=== PATIENT | male | born 1935 | race Caucasian/White ===

== ENCOUNTER 2021-12-24 08:12 | Day surgery (SDC) | payer MEDICARE, BC ==
[2021-12-21 09:54] LABS: BASOPHILS # (AUTO) 0.1 X10'3 (0-0.2); BASOPHILS % (AUTO) 0.8 % (0-1); EOSINOPHILS # (AUTO) 0.3 X10'3 (0-0.9); LYMPHOCYTES # (AUTO) 1.7 X10'3 (1.1-4.8); LYMPHOCYTES % (AUTO) 22.2 % (21-51); MEAN CORPUSCULAR HEMOGLOBIN 32.6 PG (27.0-31.0); MEAN CORPUSCULAR HGB CONC 34.3 g/dL (33.0-36.5); MEAN CORPUSCULAR VOLUME 95.2 FL (78-98); MEAN PLATELET VOLUME 8.6 FL (7.4-10.4); MONOCYTES # (AUTO) 0.8 X10'3 (0-0.9); MONOCYTES % (AUTO) 10.2 % (2-12); NEUTROPHILS # (AUTO) 4.9 X10'3 (1.8-7.7); NEUTROPHILS % (AUTO) 62.8 % (42-75); PRE OP HEMATOCRIT 42.3 % (42.0-52.0); PRE OP HEMOGLOBIN 14.5 g/dL (14.0-17.9); PRE OP PLATELET COUNT 198 X10'3 (140-440); RED BLOOD COUNT 4.44 X10'6 (4.70-6.10); RED CELL DISTRIBUTION WIDTH 12.8 % (11.5-14.5)
[2021-12-21 12:45] LABS: ALBUMIN 4.1 G/DL (3.4-5.0); ALBUMIN/GLOBULIN RATIO 1.1 (1.1-1.5); ALKALINE PHOSPHATASE 90 IU/L (46-116); BLOOD UREA NITROGEN 11 MG/DL (7-18); BUN/CREATININE RATIO 10.6 (5.4-32.0); CALCIUM 9.2 MG/DL (8.5-10.1); CHLORIDE 107 MMOL/L (99-107); CREATININE 1.04 MG/DL (0.60-1.10); PRE OP ALT 23 U/L (30-65); PRE OP ANION GAP 6 (8-16); PRE OP AST 20 U/L (10-37); PRE OP BILIRUB, TOTAL 0.6 MG/DL (0.0-1.0); PRE OP GLUCOSE 91 MG/DL (70-104); PRE OP POTASSIUM 4.2 MMOL/L (3.4-5.1); PRE OP SODIUM 140 MMOL/L (135-145); TOTAL CARBON DIOXIDE 26.7 MMOL/L (24-32); TOTAL PROTEIN 7.8 G/DL (6.4-8.2); eGFR 68 ML/MIN
[~2021-12-24] VITALS: Ht 180.3 cm; Wt 93.5 kg
[2021-12-24] VITALS (19 sets, daily range): BP systolic 135–162; BP diastolic 66–102
[~2021-12-24 08:12] MED LIST: ALLO100T PO; ASPI81TA52 PO; ATOR10TA70 PO; BUPIVAcaine 0.5% inj/PF 30 ML ONE; CYAN-51 PO; LIDOcaine 1% 30ml preserv. free vial ONE; LISI20TA28 PO; MULT-1249 PO; NITR0.4T51 SL; VITAMIN D3; ceFAZolin inj. 2,000 MG in dextrose 5%-water 100 ML IV ONE; famotidine 20mg tablet PO ONE; ringers solution, lacted 1,000 ML IV SCH
[2021-12-24] MEDS ORDERED: BUPIVAcaine 0.5% inj/PF 30 ml vial IJ ONE (10:19)
[2021-12-24] MEDS ORDERED: fentaNYL/PF 50MCG/1 ML 2ML syringe ONE (11:08)
[2021-12-24] MEDS ORDERED: LIDOcaine 2% (20mg/ml) 5ml vial ONE (11:22)
[2021-12-24] MEDS ORDERED: rocuronium 10mg/ml inj IV ONE (11:22)
[2021-12-24] MEDS ORDERED: propofol inj 20 ML IV ONE (11:22)
[2021-12-24] MEDS ORDERED: neostigmine methylsulfate 1 MG/ML 10ml vial ONE (11:40)
[2021-12-24] MEDS ORDERED: ondansetron/PF 4mg/2ml inj ONE (11:40)
[2021-12-24] MEDS ORDERED: dexamethasone sod phosphate 4mg/ml inj. ONE (11:40)
[2021-12-24] MEDS ORDERED: glycopyrrolate 0.2mg/ml inj ONE (11:40)
--- NOTE | 2021-12-24 12:06 | NUR ---
Received from OR via BED, accompanied by Anesthesiologist DR KEBEDE and report given by Anesthesiologist AND OWNER OPERATOR. PT DROWSY, DENIES PAIN. ABDOMEN W 3/LAP SITES W/BANDAIDS CDI. Addendum: 12/24/21 at 1335 by Yarelis Bonds RN Amended: Links added.
[2021-12-24] MEDS ORDERED: sugammadex 200mg/2ml injection IV ONE (12:10)
[2021-12-24] MEDS ORDERED: HYDROcodone/acetaminophen 5mg/325mg tablet PO PRN (12:15)
[2021-12-24] MEDS ORDERED: morphine 2 MG/ML inj. syringe IV PRN (12:20)
[2021-12-24] MEDS ORDERED: albuterol 2.5 MG/3 ML nebule NEB ONE (12:20)
[2021-12-24] MEDS ORDERED: ringers solution, lacted 1,000 ML IV SCH (12:20)
[2021-12-24] MEDS ORDERED: HYDROmorphone/PF 0.2 MG/ML SYRINGE IV PRN (12:20)
[2021-12-24] MEDS ORDERED: ondansetron/PF 4mg/2ml inj IV PRN (12:20)
--- NOTE | 2021-12-24 14:40 | NUR ---
PT STILL DECLINES PAIN MEDICATION, STATES PAIN IS MINIMAL. PT SENT TO [facility], RECEIVING RN AT BEDSIDE TO RECEIVE PT. Addendum: 12/24/21 at 1510 by Yarelis Bonds RN Amended: Links added.
--- NOTE | 2021-12-24 14:45 | NUR ---
ASSUMED CARE OF PATIENT AT 1445.
--- NOTE | 2021-12-24 17:16 | NUR ---
PATIENT MEETS DISCHARGE CRITERIA. VSS. IV DC'D NO COMPLICATIONS. PATIENT WAS UNABLE TO URINATE MORE THAN 100ML. BLADDER SCANNED THE PATIENT, PATIENT HAD 465. PLACED F/C, EDUCATED PATIENT, GAVE DISCHARGE INSTRUCTION, AND SENT PATIENT HOME WITH INFECTION CONTROL WIPES. PATIENT WILL CALL DR CONLEY IN THE AM FOR F/C DC DATE.
[2021-12-25] MEDS ORDERED: FLU VACC QS2021-22(6MOS UP)/PF 60 MCG/0.5 ML SYRINGE IM ONE (15:55)
== END 2021-12-24 17:16 | disposition home or self-care (01) ==
LOC: PAS 08:12
PROVIDERS: ATTEND Surgery
DX: K40.90 Unilateral inguinal hernia, without obstruction or gangrene, not specified as recurrent (principal); I10 Essential (primary) hypertension; M10.9 Gout, unspecified; Z79.899 Other long term (current) drug therapy; Z79.82 Long term (current) use of aspirin; Z95.1 Presence of aortocoronary bypass graft; Z98.890 Other specified postprocedural states; Z20.822 Contact with and (suspected) exposure to COVID-19
CPT/HCPCS: 36415; 49650; 80053; 82948; 85025; 87635; 93005; 94640; C1781; C9803; J0690; J1100; J2405; J2704; J2710; J3010; J3490; J7030; J7060; J7120; S0020; Z7506; Z7508; Z7512; A4215; A4618

== ENCOUNTER 2021-12-28 09:30 | Emergency (ER) | payer MEDICARE, BC ==
[~2021-12-28] VITALS: Ht 180.3 cm; Wt 90.9 kg
[~2021-12-28 09:30] MED LIST changes: -BUPIVAcaine 0.5% inj/PF 30 ML ONE; -LIDOcaine 1% 30ml preserv. free vial ONE; -ceFAZolin inj. 2,000 MG in dextrose 5%-water 100 ML IV ONE; -famotidine 20mg tablet PO ONE; -ringers solution, lacted 1,000 ML IV SCH
[2021-12-28 09:37] VITALS: BP 170/85
== END 2021-12-28 12:16 | disposition home or self-care (01) ==
LOC: ER 09:30
DX: M25.512 Pain in left shoulder (principal); R07.89 Other chest pain; R11.2 Nausea with vomiting, unspecified; K59.00 Constipation, unspecified; I25.10 Atherosclerotic heart disease of native coronary artery without angina pectoris; Z98.890 Other specified postprocedural states; Z79.82 Long term (current) use of aspirin; Z79.899 Other long term (current) drug therapy
CPT/HCPCS: 93005; 99283